=== PATIENT | male | born 1995 | race African-American/Black ===

== ENCOUNTER 2020-11-04 13:19 | Emergency (ER) | payer OTHER, MEDICAID, SELFPAY ==
--- NOTE | 2020-11-04 13:28 | PC.NURSE ---
pt states he's been to the ED in [place] and the walk in clinic on [facility]. pt states he is taking amoxicillin and ear drops. pt not better after 5 days.
[2020-11-04 13:50] VITALS: BP 149/77; PULSE 69; RESP 16; TEMP 37.3; O2SAT 99
--- NOTE | 2020-11-04 16:40 | ED.EAR ---
HPI - Ear Problem General Chief complaint: Ear Stated complaint: ear infection in both ears Time Seen by Provider: 11/04/20 16:39 Source: patient Mode of arrival: Ambulatory Limitations: no limitations History of Present Illness HPI Narrative: This is a 25-year-old male comes emergency department with complaint of infection in both his ears. Patient states he developed symptoms in the last week. He was seen at an urgent followed by the emergency department in [place], [place]. Was initially put on poly Spore in/neomycin drops and then switched to ciprofloxacin/dexamethasone. He has had 24 hours of drops of the Cipro/dexamethasone and states he is not having any improvement. He has not had fevers. He does not feel like it is improving at this time. He did have improvement the very 1st day, he states that may have been from getting a pain shot and having a dose of oral steroid at the emergency department. Patient denies any other symptoms. No nasal congestion. He has not had recurrent or frequent ear infections. He has not been swimming recently. He denies any other medical issues. No regular medications. No allergies to medications. He states he does use Q-tips regularly and thinks this may have been the cause of his initial problems. Related Data Previous Rx's Medication Instructions Recorded amoxicillin 500 mg PO TID #30 tab 11/04/20 Review of Systems Review of Systems ROS Unobtainable: All systems reviewed & are unremarkable except as noted in HPI and below Patient History Social History Smoking Status: Current every day smoker Smoking Status: Current every day smoker alcohol intake frequency: 0-2 drinks per day Exam Narrative Exam Narrative: GEN: well nourished, well appearing male, alert and oriented x 3, patient appears to be in mild distress. HEENT: Atraumatic, pupils are equal round reactive to light, extraocular movements are intact, nares are clear, unable to visualize TMs bilaterally, patient does have swelling with some erythema of the bilateral canals, patient has mild discomfort with pulling of the right pinna, none with the left. He has only mild discomfort with palpation at the tragus. No swelling of the pinna or face. Throat is clear without any exudates, erythema, tonsillar enlargement or uvular deviation HEART: Regular rate and rhythm without murmur, clicks, rubs. LUNGS:Lungs clear to auscultation, no wheezes, rales, crackles, chest moves symmetrically MSCL: Non-tender, full range of motion, normal gait NEURO:CN 2-12 intact, sensation normal SKIN: No rash, erythema or other changes noted. Initial Vital Signs Initial Vital Signs: Vital Signs Temperature 99.1 F 11/04/20 13:50 Pulse Rate 69 11/04/20 13:50 Respiratory Rate 16 11/04/20 13:50 Blood Pressure 149/77 H 11/04/20 13:50 Pulse Oximetry 99 11/04/20 13:50 Course Vital Signs Vital signs: Vital Signs - 8 hr 11/04/20 13:50 11/04/20 17:26 Temperature 99.1 F Pulse Rate 69 89 Respiratory Rate 16 18 Blood Pressure 149/77 H 153/91 H Pulse Oximetry 99 100 Medical Decision Making MDM Narrative Medical decision making narrative: This is a 25-year-old male comes with complaint of infection in both ears. After discussion patient has been putting the drops in twice daily which is appropriate but he places them and then almost immediately is moving around and by his description likely a fair amount of the drops are not making it deep within the canal. We discussed changing his technique. He did ask for referral to ENT to I think is appropriate if he continues to have difficulty. The canals are not so swollen that I think he requires an ear wick at this time. I did give a prescription for oral antibiotics to start in the next several days if he continues to have issues or has worsening symptoms even with the change in his technique. Discharge Plan Departure Patient Disposition: Home Clinical Impression: Otitis externa Instructions: DI for Otitis Externa Activity Restrictions/Additional Instructions: Follow up with ENT or primary care if you are not improving in the next 2-3 days. Continue the cipro/dexamethasone otic drops four times daily x 10 days. Lay on your side for [address] the gtts and then place a cotton ball on your outer ear to help keep the drops in your ear, then switch to the other side. If you do not have any improvement in the next 3 days then start oral antibiotics. Prescription was sent to [facility] in [place] Please return to the emergency department if you have fevers greater 100.4 F, increasing pain, swelling, redness, drainage from her ear, loss of hearing, severe headaches, or other new or concerning symptoms. Prescriptions: New amoxicillin 500 mg tablet 500 mg PO TID Qty: 30 RF: 0 Referrals: Neo Bishop MD [Physician] - Stand Alone Forms: Work Release Note
[2020-11-04 17:26] VITALS: BP 153/91; PULSE 89; RESP 18; O2SAT 100
== END 2020-11-04 17:26 | disposition home or self-care (01) ==
PROVIDERS: Emergency Provider Emergency Medicine
DX: H60.93 Unspecified otitis externa, bilateral (principal)
CPT/HCPCS: 99281